=== PATIENT | male | born 1970 | race Caucasian/White ===

== ENCOUNTER 2016-12-11 12:54 | Emergency (ER) | payer OTHER ==
--- NOTE | ~2016-12-11 | CR230 ---
[facility] A Service of [facility] RADIOLOGY TEXT RESULTS PATIENT: MADAY MULLEN LOCATION: SED : 68 UNIT #: [id number] AGE: [address]: Ciara Mahan MD SEX: M ORDER DR: [id number] [place] [id number] E MR#: [id number] Acc #: [id number] NAME: MADAY MULLEN : 1970 SEX: M STUDY DATE/TIME: UNIT: SED ROOM: STUDY DESCRIPTION: CR Shoulder Min 2 View Rt Attending Physician: Ciara Mahan M.D. Ordering Physician: Ciara Mahan M.D. Primary Care Physician: Chino Evans M.D. MEDICAL IMAGING REPORT This report is preliminary unless electronic signature is present. EXAM Right shoulder, 3 views, 12/11/2016 1317 hours HISTORY Patient fell last night complaining of shoulder pain superiorly. COMPARISON 09/07/2014 FINDINGS AP views in internal-external rotation and a scapula Y-view demonstrate an acute mildly comminuted fracture of the distal clavicle occurring 1.8 cm proximal to the distal articular surface of the clavicle. The distal fragment is apparently still articulating with the acromion. The medial fragment of the fracture is elevated full shaft width relative to the distal fragment and is likely palpable. There is a comminuted fragment displaced inferior to the fracture site. The glenohumeral joint and scapula are normal. IMPRESSION There is a mildly comminuted displaced fracture of the distal clavicle occurring 1.8 cm medial to the distal articular surface with elevation of the medial fragment at full shaft width and displacement inferiorly of a fracture fragment. The distal fragment of the clavicle appears to remain articulated with the acromion. Dictated by... Talita Pal M.D. THIS IS AN ELECTRONICALLY VERIFIED REPORT Talita Pal M.D. at 12/12/2016 9:36 AM SMM/cs [facility] A Service of [facility] RADIOLOGY TEXT RESULTS PATIENT: MADAY MULLEN [place] [facility] [place] [birth year] [place]IT #: [id number] AGE: [address]: Ciara Mahan MD SEX: M ORDER DR: TD: 12/11/2016 15:41 JOB #: [id number] MEDICAL IMAGING REPORT Page 1 of 1
[~2016-12-11 12:54] MED LIST: CILOXAN5 ML OD; EYE ALLERGY REL15 M1 OU; HYDROCODON-ACE1 EAC7 PO; KETOROLAC TROMET5 M2 OD; NO MEDICATIONS; PHENERGAN25 MG PO
[2016-12-11] MEDS ORDERED: NO MEDICATIONS (12:56)
== END 2016-12-11 14:15 | disposition home or self-care (01) ==
LOC: SED 12:54
DX: S42.001A Fracture of unspecified part of right clavicle, initial encounter for closed fracture (principal); F17.200 Nicotine dependence, unspecified, uncomplicated; W18.00XA Striking against unspecified object with subsequent fall, initial encounter; Y92.828 Other wilderness area as the place of occurrence of the external cause
CPT/HCPCS: 73030; 99283